=== PATIENT | female | born 1975 | race Caucasian/White ===

== ENCOUNTER 2019-01-16 20:34 | Emergency (ER) | payer SELFPAY ==
[~2019-01-16] VITALS: Ht 167.6 cm; Wt 77.0 kg
[2019-01-16] MEDS ORDERED: ONDANSETRON 4MG ODT PO STA (22:46)
[2019-01-16] MEDS ORDERED: LIDOCAINE HCL/PF 1% 10 MG/ML 5ML VIAL IJ ONE (23:00)
[2019-01-16] MEDS ORDERED: MORPHINE SULFATE 10 MG/ML CPJ IM ONE (23:00)
[2019-01-16] MEDS ORDERED: SODIUM CHLORIDE 0.9% 1,000 ML IV ONE (23:03)
[2019-01-17 00:35] LABS: BASOPHILS % 0.3 % (0.0-2.0); EOSINOPHILS % 0.1 % (0.0-5.0); HEMATOCRIT. 37.7 % (36.0-48.0); HEMOGLOBIN. 12.6 g/dL (12.0-16.0); LYMPHOCYTES % 10.1 % (20.0-50.0); MEAN CORPUSCULAR VOLUME 89.7 fL (81.0-99.0); MEAN PLATELET VOLUME 8.2 fl (7.4-10.4); NEUTROPHILS % 85.5 % (40.0-76.0); PLATELET 238 x1000/uL (130-400); RED CELL DISTRIBUTION WIDTH 13.8 % (11.6-14.6)
[2019-01-17 00:40] LABS: CHLORIDE 109 mEq/L (98-107)
[2019-01-17] MEDS ORDERED: TETANUS, DIPHTHERIA, PERTUSSIS VAC/PF 0.5ML (>7YR OLD) IM ONE (01:00)
[2019-01-17 02:57] LABS: CLARITY URINE CLEAR (CLEAR); COLOR URINE YELLOW (YELLOW); KETONES URINE TRACE (NEGATIVE); LEUKOCYTE ESTERASE URINE NEGATIVE (NEGATIVE); NITRITE URINE NEGATIVE (NEGATIVE); OCCULT BLOOD URINE NEGATIVE (NEGATIVE); PH URINE 5.5 (4.5-8.0); PROTEIN URINE TRACE (NEGATIVE); SPECIFIC GRAVITY URINE 1.029 (1.005-1.030); UROBILINOGEN URINE 0.2 E.U./dL (0.2-1.0)
[2019-01-17] MEDS ORDERED: ONDANSETRON HCL 4MG/2ML INJ IV ONE (03:30)
[2019-01-17] MEDS ORDERED: MORPHINE SULFATE 4 MG/ML CPJ (NOT FOR IM USE) IV ONE (03:30)
[2019-01-17 04:15] VITALS: BP 132/78
== END 2019-01-17 06:18 | disposition home or self-care (01) ==
LOC: ER 23:38
DX: S22.39XA Fracture of one rib, unspecified side, initial encounter for closed fracture (principal); S09.8XXA Other specified injuries of head, initial encounter; M54.9 Dorsalgia, unspecified; R56.9 Unspecified convulsions; W19.XXXA Unspecified fall, initial encounter; Y93.89 Activity, other specified; Y92.89 Other specified places as the place of occurrence of the external cause; Y99.8 Other external cause status
CPT/HCPCS: 36415; 70450; 72070; 72128; 80053; 81003; 85025; 90471; 90715; 96374; 96375; 99284; J2270; J2405; J3490; J7030; Q0162

== ENCOUNTER 2019-04-21 11:15 | Emergency (ER) | payer MEDICARE, MEDICAID ==
[~2019-04-21] VITALS: Ht 162.6 cm; Wt 77.0 kg
[2019-04-21] MEDS ORDERED: SODIUM CHLORIDE 0.9% 1,000 ML IV ONE (11:37)
[2019-04-21 12:45] LABS: BASOPHILS % 0.4 % (0.0-2.0); EOSINOPHILS % 0.6 % (0.0-5.0); HEMATOCRIT. 38.5 % (36.0-48.0); LYMPHOCYTES % 30.5 % (20.0-50.0); MEAN CORPUSCULAR HEMOGLOBIN 29.7 pg (28.0-32.0); MEAN CORPUSCULAR VOLUME 88.1 fL (81.0-99.0); MEAN PLATELET VOLUME 8.3 fl (7.4-10.4); MONOCYTES % 6.8 % (2.0-8.0); NEUTROPHILS % 61.7 % (40.0-76.0); PLATELET 242 x1000/uL (130-400); RED BLOOD CELL COUNT 4.37 mill/uL (4.2-5.4); RED CELL DISTRIBUTION WIDTH 13.6 % (11.6-14.6)
[2019-04-21 12:50] LABS: CHLORIDE 106 mEq/L (98-107)
[2019-04-21 12:54] LABS: ETHANOL BLOOD < 10 mg/dL
[2019-04-21 13:34] LABS: HCG SCREEN NEGATIVE
[2019-04-21 17:28] VITALS: BP 122/80
[2019-04-21 17:28] LABS: CLARITY URINE CLEAR (CLEAR); COLOR URINE YELLOW (YELLOW); KETONES URINE NEGATIVE (NEGATIVE); LEUKOCYTE ESTERASE URINE NEGATIVE (NEGATIVE); NITRITE URINE POSITIVE (NEGATIVE); OCCULT BLOOD URINE NEGATIVE (NEGATIVE); PH URINE 5.5 (4.5-8.0); PROTEIN URINE NEGATIVE (NEGATIVE); SPECIFIC GRAVITY URINE 1.025 (1.005-1.030); UROBILINOGEN URINE 0.2 E.U./dL (0.2-1.0)
[2019-04-21] MEDS ORDERED: CEFTRIAXONE 1 G PREMIX 50 ML IV NR (17:45)
[2019-04-21 17:48] LABS: *AMPHETAMINES SCREEN URINE NEGATIVE (NEGATIVE); METHADONE URINE SCREEN NEGATIVE (NEGATIVE)
[2019-04-21 17:49] LABS: *BARBITURATES SCREEN URINE NEGATIVE (NEGATIVE); *BENZODIAZEPINES SCREEN URINE NEGATIVE (NEGATIVE); *COCAINE SCREEN URINE NEGATIVE (NEGATIVE); CANNABINOID URINE SCREEN NEGATIVE (NEGATIVE); OPIATES URINE SCREEN NEGATIVE (NEGATIVE); PHENCYCLIDINE URINE SCREEN NEGATIVE (NEGATIVE)
== END 2019-04-21 18:19 | disposition home or self-care (01) ==
LOC: ER 11:15
DX: N39.0 Urinary tract infection, site not specified (principal); R56.9 Unspecified convulsions
CPT/HCPCS: 36415; 70450; 80053; 80305; 80320; 81003; 84703; 85025; 96360; 99284; J7030; G0480

== ENCOUNTER 2021-05-10 12:43 | Emergency (ER) | payer OTHER, MEDICAID ==
[~2021-05-10] VITALS: Ht 162.6 cm; Wt 100.0 kg
[2021-05-10 13:38] LABS: BASOPHILS % 0.6 % (0.0-2.0); HEMATOCRIT. 38.8 % (36.0-48.0); HEMOGLOBIN. 13.2 g/dL (12.0-16.0); MEAN CORPUSCULAR HEMOGLOBIN 30.3 pg (28.0-32.0); MEAN CORPUSCULAR VOLUME 88.8 fL (81.0-99.0); MEAN PLATELET VOLUME 8.3 fl (7.4-10.4); MONOCYTES % 5.8 % (2.0-8.0); NEUTROPHILS % 57.6 % (40.0-76.0); PLATELET 237 x1000/uL (130-400); RED BLOOD CELL COUNT 4.36 mill/uL (4.2-5.4); RED CELL DISTRIBUTION WIDTH 13.9 % (11.6-14.6)
[2021-05-10 13:45] LABS: CHLORIDE 109 mEq/L (98-107)
[2021-05-10 15:53] VITALS: BP 126/70
== END 2021-05-10 15:56 | disposition home or self-care (01) ==
LOC: ER 12:43
DX: R56.9 Unspecified convulsions (principal)
CPT/HCPCS: 36415; 80053; 85025; 93005; 99284

== ENCOUNTER 2021-09-02 14:34 | Emergency (ER) | payer MEDICARE, MEDICAID ==
[~2021-09-02] VITALS: Ht 162.6 cm; Wt 91.0 kg
[2021-09-02] MEDS ORDERED: CARB200T PO (14:44)
[2021-09-02 15:28] LABS: BASOPHILS % 0.4 % (0.0-2.0); EOSINOPHILS % 0.6 % (0.0-5.0); HEMOGLOBIN. 13.2 g/dL (12.0-16.0); LYMPHOCYTES % 20.1 % (20.0-50.0); MEAN CORPUSCULAR HEMOGLOBIN 30.8 pg (28.0-32.0); MEAN CORPUSCULAR VOLUME 88.5 fL (81.0-99.0); MEAN PLATELET VOLUME 8.2 fl (7.4-10.4); MONOCYTES % 5.4 % (2.0-8.0); NEUTROPHILS % 73.5 % (40.0-76.0); PLATELET 241 x1000/uL (130-400); RED BLOOD CELL COUNT 4.29 mill/uL (4.2-5.4); RED CELL DISTRIBUTION WIDTH 13.4 % (11.6-14.6)
[2021-09-02 15:32] LABS: CHLORIDE 108 mEq/L (98-107)
[2021-09-02 15:43] LABS: ETHANOL BLOOD < 10 mg/dL
[2021-09-02] MEDS ORDERED: MORPHINE SULFATE 4 MG/ML CPJ (NOT FOR IM USE) IV ONE (15:45)
[2021-09-02 19:19] LABS: CLARITY URINE CLEAR (CLEAR); COLOR URINE YELLOW (YELLOW); KETONES URINE TRACE (NEGATIVE); LEUKOCYTE ESTERASE URINE NEGATIVE (NEGATIVE); NITRITE URINE NEGATIVE (NEGATIVE); OCCULT BLOOD URINE 2+ (NEGATIVE); PROTEIN URINE NEGATIVE (NEGATIVE); SPECIFIC GRAVITY URINE 1.021 (1.005-1.030); UROBILINOGEN URINE 0.2 E.U./dL (0.2-1.0)
[2021-09-02 19:31] LABS: *AMPHETAMINES SCREEN URINE NEGATIVE (NEGATIVE); *BARBITURATES SCREEN URINE NEGATIVE (NEGATIVE); *BENZODIAZEPINES SCREEN URINE NEGATIVE (NEGATIVE); *COCAINE SCREEN URINE NEGATIVE (NEGATIVE); CANNABINOID URINE SCREEN NEGATIVE (NEGATIVE); METHADONE URINE SCREEN NEGATIVE (NEGATIVE); PHENCYCLIDINE URINE SCREEN NEGATIVE (NEGATIVE)
[2021-09-02 19:32] LABS: OPIATES URINE SCREEN PRESUMTIVE POSITIVE (NEGATIVE)
[2021-09-03 03:04] VITALS: BP 137/88
== END 2021-09-03 03:24 | disposition home or self-care (01) ==
LOC: ER 14:55
DX: G40.909 Epilepsy, unspecified, not intractable, without status epilepticus (principal); T42.0X5A Adverse effect of hydantoin derivatives, initial encounter; S00.83XA Contusion of other part of head, initial encounter; W01.198A Fall on same level from slipping, tripping and stumbling with subsequent striking against other object, initial encounter; Y93.89 Activity, other specified; Y92.89 Other specified places as the place of occurrence of the external cause
CPT/HCPCS: 36415; 70450; 71045; 80053; 80156; 80305; 80320; 81003; 82962; 83690; 84484; 85025; 93005; 96374; 99285; J2270; G0480

== ENCOUNTER → 2024-02-01 | Emergency (ER) | payer MEDICARE, MEDICAID ==
[~2024-02-01] VITALS: Ht 162.6 cm; Wt 70.0 kg
[~2024-02-01] MED LIST: CARB200T PO
[2024-02-01 11:49] VITALS: TEMP 98.3; O2SAT 95
[2024-02-01 13:45] VITALS: BP 119/63; PULSE 73; RESP 18; O2SAT 99
[2024-02-01 14:04] LABS: BASOPHILS % 0.3 % (0.0-2.0); EOSINOPHILS % 0.1 % (0.0-5.0); HEMATOCRIT. 42.9 % (36.0-48.0); HEMOGLOBIN. 14.3 g/dL (12.0-16.0); LYMPHOCYTES % 18.5 % (20.0-50.0); MEAN CORPUSCULAR HEMOGLOBIN 30.4 pg (28.0-32.0); MEAN CORPUSCULAR HGB CONC 33.4 g/dL (31.0-37.0); MEAN CORPUSCULAR VOLUME 91.1 fL (81.0-99.0); MEAN PLATELET VOLUME 8.2 fl (7.4-10.4); MONOCYTES % 3.9 % (2.0-8.0); NEUTROPHILS % 77.2 % (40.0-76.0); PLATELET 227 x1000/uL (130-400); RED BLOOD CELL COUNT 4.71 mill/uL (4.2-5.4); RED CELL DISTRIBUTION WIDTH 13.7 % (11.6-14.6); WHITE BLOOD COUNT 8.1 x1000/uL (4.5-11.0)
[2024-02-01 14:10] LABS: CARBON DIOXIDE 29 mEq/L (21-32); CHLORIDE 105 mEq/L (98-107); POTASSIUM 4.2 mEq/L (3.5-5.1); SODIUM 138 mEq/L (136-145)
[2024-02-01 14:11] LABS: CALCIUM 9.2 mg/dL (8.7-10.4)
[2024-02-01 14:15] LABS: CREATININE 0.6 mg/dL (0.6-1.0); GLUCOSE 140 mg/dL (70-105)
[2024-02-01 14:16] LABS: UREA NITROGEN BLOOD 12 mg/dL (9-23)
[2024-02-01 14:18] LABS: PHOSPHORUS 3.9 mg/dL (2.5-4.9)
[2024-02-01 15:15] LABS: CLARITY URINE CLEAR (CLEAR); COLOR URINE YELLOW (YELLOW); GLUCOSE URINE 3+ (NEGATIVE); KETONES URINE NEGATIVE (NEGATIVE); LEUKOCYTE ESTERASE URINE NEGATIVE (NEGATIVE); NITRITE URINE NEGATIVE (NEGATIVE); OCCULT BLOOD URINE NEGATIVE (NEGATIVE); PH URINE 6.5 (4.5-8.0); PROTEIN URINE NEGATIVE (NEGATIVE); UROBILINOGEN URINE 0.2 E.U./dL (0.2-1.0)
[2024-02-01 15:35] LABS: *AMPHETAMINES SCREEN URINE NEGATIVE (NEGATIVE); *BARBITURATES SCREEN URINE NEGATIVE (NEGATIVE); *BENZODIAZEPINES SCREEN URINE NEGATIVE (NEGATIVE); *COCAINE SCREEN URINE NEGATIVE (NEGATIVE)
[2024-02-01 15:36] LABS: CANNABINOID URINE SCREEN NEGATIVE (NEGATIVE); ECSTASY MDMA SCREEN URINE NEGATIVE (NEGATIVE); METHADONE URINE SCREEN NEGATIVE (NEGATIVE); OPIATES URINE SCREEN NEGATIVE (NEGATIVE); PHENCYCLIDINE URINE SCREEN NEGATIVE (NEGATIVE)
[2024-02-01 15:38] LABS: BACTERIA URINE FEW; RBC URINE 0-2 /hpf (0-2); SQUAMOUS EPITHELIAL CELL URINE FEW /lpf (RARE/1+); WBC URINE 0-2 /hpf (0-2); YEAST URINE NONE SEEN
== END | disposition home or self-care (01) ==
LOC: ER 11:40
DX: G40.909 Epilepsy, unspecified, not intractable, without status epilepticus (principal); Z90.49 Acquired absence of other specified parts of digestive tract
CPT/HCPCS: 36415; 80048; 80305; 81003; 83735; 84100; 85025; 93005; 99284

== ENCOUNTER 2024-04-17 12:31 | Emergency (ER) | payer MEDICAID, MEDICARE ==
[~2024-04-17] VITALS: Ht 162.6 cm; Wt 87.0 kg
[2024-04-17 12:32] VITALS: PULSE 74; O2SAT 100
[2024-04-17 12:35] VITALS: BP 138/84; RESP 18; TEMP 98.6; O2SAT 99
[2024-04-17 13:14] LABS: BASOPHILS % 0.2 % (0.0-2.0); EOSINOPHILS % 0.4 % (0.0-5.0); HEMOGLOBIN. 13.9 g/dL (12.0-16.0); LYMPHOCYTES % 22.8 % (20.0-50.0); MEAN CORPUSCULAR HEMOGLOBIN 30.2 pg (28.0-32.0); MEAN CORPUSCULAR HGB CONC 33.2 g/dL (31.0-37.0); MEAN PLATELET VOLUME 8.4 fl (7.4-10.4); MONOCYTES % 4.7 % (2.0-8.0); NEUTROPHILS % 71.9 % (40.0-76.0); PLATELET 215 x1000/uL (130-400); RED BLOOD CELL COUNT 4.61 mill/uL (4.2-5.4); RED CELL DISTRIBUTION WIDTH 13.3 % (11.6-14.6); WHITE BLOOD COUNT 6.7 x1000/uL (4.5-11.0)
[2024-04-17 13:25] LABS: CHLORIDE 105 mEq/L (98-107); POTASSIUM 4.3 mEq/L (3.5-5.1); SODIUM 141 mEq/L (136-145)
[2024-04-17 13:26] LABS: CALCIUM 9.3 mg/dL (8.7-10.4); CARBON DIOXIDE 29 mEq/L (21-32)
[2024-04-17 13:31] LABS: CREATININE 0.8 mg/dL (0.6-1.0); GLUCOSE 196 mg/dL (70-105); UREA NITROGEN BLOOD 8 mg/dL (9-23)
[2024-04-17 13:32] LABS: CARBAMAZEPINE 7.7 ug/mL (4-12)
[2024-04-17 13:34] LABS: ETHANOL BLOOD < 10 mg/dL (<10)
== END 2024-04-17 16:50 | disposition home or self-care (01) ==
LOC: ER 12:49
DX: R56.9 Unspecified convulsions (principal); S09.90XA Unspecified injury of head, initial encounter; E11.9 Type 2 diabetes mellitus without complications; Z90.49 Acquired absence of other specified parts of digestive tract; W18.30XA Fall on same level, unspecified, initial encounter; Y93.89 Activity, other specified; Y92.89 Other specified places as the place of occurrence of the external cause; Y99.8 Other external cause status
CPT/HCPCS: 36415; 80048; 80156; 80320; 85025; 93005; 99284; G0480

== ENCOUNTER 2024-05-29 12:51 | Emergency (ER) | payer OTHER, MEDICAID ==
[~2024-05-29] VITALS: Ht 167.6 cm; Wt 80.0 kg
[2024-05-29 12:54] VITALS: O2SAT 96
[2024-05-29] MEDS: LORAZEPAM 2MG/ML INJ IV ONE (13:56)
[2024-05-29 14:08] LABS: BASOPHILS % 0.5 % (0.0-2.0); EOSINOPHILS % 0.9 % (0.0-5.0); HEMATOCRIT. 41.1 % (36.0-48.0); HEMOGLOBIN. 13.8 g/dL (12.0-16.0); LYMPHOCYTES % 27.9 % (20.0-50.0); MEAN CORPUSCULAR HEMOGLOBIN 30.8 pg (28.0-32.0); MEAN CORPUSCULAR HGB CONC 33.5 g/dL (31.0-37.0); MEAN CORPUSCULAR VOLUME 91.9 fL (81.0-99.0); MEAN PLATELET VOLUME 8.6 fl (7.4-10.4); MONOCYTES % 5.7 % (2.0-8.0); PLATELET 227 x1000/uL (130-400); RED BLOOD CELL COUNT 4.47 mill/uL (4.2-5.4); RED CELL DISTRIBUTION WIDTH 13.6 % (11.6-14.6); WHITE BLOOD COUNT 6.6 x1000/uL (4.5-11.0)
[2024-05-29 14:17] LABS: CHLORIDE 105 mEq/L (98-107); POTASSIUM 4.1 mEq/L (3.5-5.1); SODIUM 138 mEq/L (136-145)
[2024-05-29 14:18] LABS: CARBON DIOXIDE 25 mEq/L (21-32)
[2024-05-29 14:19] LABS: CALCIUM 8.9 mg/dL (8.7-10.4)
[2024-05-29 14:23] LABS: CREATININE 0.6 mg/dL (0.6-1.0); GLUCOSE 159 mg/dL (70-105); UREA NITROGEN BLOOD 13 mg/dL (9-23)
[2024-05-29 14:30] LABS: ETHANOL BLOOD < 10 mg/dL (<10)
[2024-05-29 15:29] LABS: CLARITY URINE CLEAR (CLEAR); COLOR URINE YELLOW (YELLOW); GLUCOSE URINE 3+ (NEGATIVE); KETONES URINE NEGATIVE (NEGATIVE); LEUKOCYTE ESTERASE URINE NEGATIVE (NEGATIVE); NITRITE URINE NEGATIVE (NEGATIVE); OCCULT BLOOD URINE NEGATIVE (NEGATIVE); PROTEIN URINE NEGATIVE (NEGATIVE); UROBILINOGEN URINE 0.2 E.U./dL (0.2-1.0)
[2024-05-29 15:30] LABS: *AMPHETAMINES SCREEN URINE NEGATIVE (NEGATIVE); *BARBITURATES SCREEN URINE NEGATIVE (NEGATIVE); *BENZODIAZEPINES SCREEN URINE NEGATIVE (NEGATIVE); *COCAINE SCREEN URINE NEGATIVE (NEGATIVE)
[2024-05-29 15:31] LABS: CANNABINOID URINE SCREEN NEGATIVE (NEGATIVE); ECSTASY MDMA SCREEN URINE NEGATIVE (NEGATIVE); METHADONE URINE SCREEN NEGATIVE (NEGATIVE); OPIATES URINE SCREEN NEGATIVE (NEGATIVE); PHENCYCLIDINE URINE SCREEN NEGATIVE (NEGATIVE)
[2024-05-29 16:17] LABS: BACTERIA URINE NONE SEEN; RBC URINE NONE SEEN /hpf (0-2); SQUAMOUS EPITHELIAL CELL URINE FEW /lpf (RARE/1+); WBC URINE 0-2 /hpf (0-2)
[2024-05-29] MEDS ORDERED: CARB100T12 MT (17:30)
[2024-05-29] MEDS ORDERED: CARB200C7 MT (17:30)
[2024-05-29 18:00] VITALS: BP 134/69; PULSE 92; RESP 18; TEMP 36.66960; O2SAT 96
== END 2024-05-29 18:10 | disposition home or self-care (01) ==
LOC: ER 12:51
DX: G40.909 Epilepsy, unspecified, not intractable, without status epilepticus (principal); E11.9 Type 2 diabetes mellitus without complications; I10 Essential (primary) hypertension; Z90.49 Acquired absence of other specified parts of digestive tract
CPT/HCPCS: 80305; 80048; 81003; 80320; 80156; 85025; 36415; 96374; 99283; J2060; G0480

== ENCOUNTER 2024-06-05 08:34 | Emergency (ER) | payer OTHER, MEDICAID ==
[~2024-06-05] VITALS: Ht 165.1 cm; Wt 85.0 kg
[~2024-06-05 08:34] MED LIST changes: +CARB100T12 MT; +CARB200C7 MT
[2024-06-05 08:55] VITALS: BP 147/79; PULSE 71; RESP 18; TEMP 36.9; O2SAT 98
[2024-06-05] MEDS ORDERED: ACETAMINOPHEN 325MG TABLET PO ONE (11:00)
[2024-06-05 11:34] LABS: BASOPHILS % 0.3 % (0.0-2.0); EOSINOPHILS % 0.4 % (0.0-5.0); HEMATOCRIT. 42.6 % (36.0-48.0); HEMOGLOBIN. 14.4 g/dL (12.0-16.0); LYMPHOCYTES % 24.4 % (20.0-50.0); MEAN CORPUSCULAR HEMOGLOBIN 31.1 pg (28.0-32.0); MEAN CORPUSCULAR HGB CONC 33.8 g/dL (31.0-37.0); MEAN CORPUSCULAR VOLUME 91.9 fL (81.0-99.0); MEAN PLATELET VOLUME 8.5 fl (7.4-10.4); MONOCYTES % 5.1 % (2.0-8.0); NEUTROPHILS % 69.8 % (40.0-76.0); PLATELET 254 x1000/uL (130-400); RED BLOOD CELL COUNT 4.63 mill/uL (4.2-5.4); RED CELL DISTRIBUTION WIDTH 14.2 % (11.6-14.6); WHITE BLOOD COUNT 7.5 x1000/uL (4.5-11.0)
[2024-06-05 11:41] LABS: CHLORIDE 106 mEq/L (98-107); SODIUM 139 mEq/L (136-145)
[2024-06-05 11:42] LABS: CARBON DIOXIDE 24 mEq/L (21-32)
[2024-06-05 11:43] LABS: CALCIUM 9.1 mg/dL (8.7-10.4)
[2024-06-05 11:47] LABS: CREATININE 0.5 mg/dL (0.6-1.0); GLUCOSE 139 mg/dL (70-105)
[2024-06-05 11:48] LABS: UREA NITROGEN BLOOD 10 mg/dL (9-23)
[2024-06-05 11:49] LABS: ALANINE AMINOTRANSFERASE 11 IU/L (10-49); ALBUMIN 4.1 g/dL (3.2-4.8); ASPARTATE AMINOTRANSFERASE 13 IU/L (<34)
[2024-06-05 11:50] LABS: BILIRUBIN TOTAL 0.4 mg/dL (0.1-1.0); PHOSPHORUS 2.6 mg/dL (2.5-4.9); PROTEIN TOTAL 7.2 g/dL (6.0-8.3)
[2024-06-05 12:18] LABS: HCG SCREEN NEGATIVE
[2024-06-05] MEDS ORDERED: MAGNESIUM GLUCONATE 500MG TABLET PO SCH (14:30)
== END 2024-06-05 14:56 | disposition home or self-care (01) ==
LOC: ER 08:34
DX: R56.9 Unspecified convulsions (principal); E11.9 Type 2 diabetes mellitus without complications; I10 Essential (primary) hypertension; Z90.49 Acquired absence of other specified parts of digestive tract
CPT/HCPCS: 36415; 80053; 83735; 84100; 84703; 85025; 93005; 99291

== ENCOUNTER 2024-06-30 11:43 | Emergency (ER) | payer MEDICAID, OTHER ==
[~2024-06-30] VITALS: Ht 165.1 cm; Wt 95.0 kg
[2024-06-30 11:53] VITALS: TEMP 36.9; O2SAT 98
[2024-06-30 16:56] VITALS: BP 155/81; PULSE 76; RESP 19; O2SAT 98
== END 2024-06-30 16:57 | disposition home or self-care (01) ==
LOC: ER 11:43
DX: I10 Essential (primary) hypertension (principal); Z00.00 Encounter for general adult medical examination without abnormal findings; R56.9 Unspecified convulsions; E11.9 Type 2 diabetes mellitus without complications; Z90.49 Acquired absence of other specified parts of digestive tract
CPT/HCPCS: 99281

== ENCOUNTER 2024-08-14 12:48 | Emergency (ER) | payer OTHER ==
[~2024-08-14] VITALS: Ht 165.1 cm; Wt 87.6 kg
[2024-08-14 12:53] VITALS: BP 166/94; TEMP 36.7; O2SAT 98
[2024-08-14 14:17] VITALS: PULSE 88; RESP 18; O2SAT 99
[2024-08-14 15:16] LABS: BASOPHILS % 0.4 % (0.0-2.0); EOSINOPHILS % 0.1 % (0.0-5.0); HEMATOCRIT. 42.6 % (36.0-48.0); LYMPHOCYTES % 17.1 % (20.0-50.0); MEAN CORPUSCULAR HEMOGLOBIN 30.1 pg (28.0-32.0); MEAN CORPUSCULAR HGB CONC 32.9 g/dL (31.0-37.0); MEAN CORPUSCULAR VOLUME 91.5 fL (81.0-99.0); MEAN PLATELET VOLUME 8.6 fl (7.4-10.4); MONOCYTES % 5.3 % (2.0-8.0); NEUTROPHILS % 77.1 % (40.0-76.0); PLATELET 232 x1000/uL (130-400); RED BLOOD CELL COUNT 4.65 mill/uL (4.2-5.4); RED CELL DISTRIBUTION WIDTH 12.9 % (11.6-14.6); WHITE BLOOD COUNT 8.7 x1000/uL (4.5-11.0)
[2024-08-14 15:24] LABS: CHLORIDE 104 mEq/L (98-107); POTASSIUM 3.9 mEq/L (3.5-5.1); SODIUM 137 mEq/L (136-145)
[2024-08-14 15:25] LABS: CALCIUM 9.3 mg/dL (8.7-10.4); CARBON DIOXIDE 27 mEq/L (21-32)
[2024-08-14 15:30] LABS: CREATININE 0.5 mg/dL (0.6-1.0); GLUCOSE 241 mg/dL (70-105); HCG SCREEN NEGATIVE; UREA NITROGEN BLOOD 12 mg/dL (9-23)
[2024-08-14 15:32] LABS: ALANINE AMINOTRANSFERASE 16 IU/L (10-49); ALBUMIN 3.8 g/dL (3.2-4.8); ASPARTATE AMINOTRANSFERASE 19 IU/L (<34); BILIRUBIN TOTAL 0.3 mg/dL (0.1-1.0); PROTEIN TOTAL 7.1 g/dL (6.0-8.3)
[2024-08-14] MEDS: ACETAMINOPHEN 325MG TABLET PO ONE (15:48)
[2024-08-14] MEDS: LEVETIRACETAM 500MG PREMIX 100 ML IV ONE ×2 (15:48)
== END 2024-08-14 16:35 | disposition home or self-care (01) ==
LOC: ER 12:48
DX: R56.9 Unspecified convulsions (principal); S00.83XA Contusion of other part of head, initial encounter; E11.9 Type 2 diabetes mellitus without complications; Z90.49 Acquired absence of other specified parts of digestive tract; Z86.59 Personal history of other mental and behavioral disorders; X58.XXXA Exposure to other specified factors, initial encounter; Y93.89 Activity, other specified; Y92.89 Other specified places as the place of occurrence of the external cause; Y99.8 Other external cause status
CPT/HCPCS: 99285; 96374; 70450; 80053; 84703; 85025; 36415; J1953

== ENCOUNTER 2024-09-26 08:27 | Emergency (ER) | payer OTHER ==
[~2024-09-26] VITALS: Ht 165.1 cm; Wt 73.0 kg
[2024-09-26 08:30] VITALS: O2SAT 98
[2024-09-26 09:33] LABS: BASOPHILS % 0.5 % (0.0-2.0); HEMATOCRIT. 40.8 % (36.0-48.0); HEMOGLOBIN. 13.6 g/dL (12.0-16.0); LYMPHOCYTES % 31.8 % (20.0-50.0); MEAN CORPUSCULAR HEMOGLOBIN 30.1 pg (28.0-32.0); MEAN CORPUSCULAR HGB CONC 33.4 g/dL (31.0-37.0); MEAN CORPUSCULAR VOLUME 90.1 fL (81.0-99.0); MEAN PLATELET VOLUME 8.4 fl (7.4-10.4); MONOCYTES % 6.4 % (2.0-8.0); NEUTROPHILS % 60.3 % (40.0-76.0); PLATELET 228 x1000/uL (130-400); RED BLOOD CELL COUNT 4.52 mill/uL (4.2-5.4); RED CELL DISTRIBUTION WIDTH 13.5 % (11.6-14.6)
[2024-09-26 09:40] LABS: CHLORIDE 106 mEq/L (98-107); SODIUM 137 mEq/L (136-145)
[2024-09-26 09:41] LABS: CARBON DIOXIDE 24 mEq/L (21-32)
[2024-09-26 09:42] LABS: CALCIUM 8.5 mg/dL (8.7-10.4)
[2024-09-26 09:46] LABS: CREATININE 0.5 mg/dL (0.6-1.0); GLUCOSE 228 mg/dL (70-105); UREA NITROGEN BLOOD 12 mg/dL (9-23)
[2024-09-26 09:47] LABS: CARBAMAZEPINE 8.5 ug/mL (4-12); ETHANOL BLOOD < 10 mg/dL (<10)
[2024-09-26 10:40] LABS: CLARITY URINE CLEAR (CLEAR); COLOR URINE YELLOW (YELLOW)
[2024-09-26 10:41] LABS: GLUCOSE URINE 3+ (NEGATIVE); KETONES URINE TRACE (NEGATIVE); LEUKOCYTE ESTERASE URINE NEGATIVE (NEGATIVE); NITRITE URINE NEGATIVE (NEGATIVE); OCCULT BLOOD URINE NEGATIVE (NEGATIVE); PH URINE 5.5 (4.5-8.0); PROTEIN URINE NEGATIVE (NEGATIVE); SPECIFIC GRAVITY URINE >=1.030 (1.005-1.030); UROBILINOGEN URINE 0.2 E.U./dL (0.2-1.0)
[2024-09-26 10:47] LABS: BACTERIA URINE 2+; RBC URINE 0-2 /hpf (0-2); SQUAMOUS EPITHELIAL CELL URINE 1+ /lpf (RARE/1+); WBC URINE 0-2 /hpf (0-2); YEAST URINE NONE SEEN
[2024-09-26 11:18] LABS: *AMPHETAMINES SCREEN URINE NEGATIVE (NEGATIVE); *BARBITURATES SCREEN URINE NEGATIVE (NEGATIVE); *BENZODIAZEPINES SCREEN URINE NEGATIVE (NEGATIVE); *COCAINE SCREEN URINE NEGATIVE (NEGATIVE); CANNABINOID URINE SCREEN NEGATIVE (NEGATIVE); ECSTASY MDMA SCREEN URINE NEGATIVE (NEGATIVE); METHADONE URINE SCREEN NEGATIVE (NEGATIVE); OPIATES URINE SCREEN NEGATIVE (NEGATIVE); PHENCYCLIDINE URINE SCREEN NEGATIVE (NEGATIVE)
[2024-09-26 12:04] VITALS: BP 128/61; PULSE 68; RESP 16; TEMP 37.1; O2SAT 98
== END 2024-09-26 12:04 | disposition home or self-care (01) ==
LOC: ER 08:27
DX: G40.909 Epilepsy, unspecified, not intractable, without status epilepticus (principal); E11.9 Type 2 diabetes mellitus without complications
CPT/HCPCS: 36415; 80048; 80156; 80305; 80320; 81003; 82962; 85025; 99283; G0480

== ENCOUNTER 2025-03-19 12:31 | Emergency (ER) | payer OTHER ==
[~2025-03-19] VITALS: Ht 167.6 cm; Wt 91.0 kg
[2025-03-19 12:39] VITALS: O2SAT 97
[2025-03-19 13:26] LABS: BASOPHILS % 0.3 % (0.0-2.0); EOSINOPHILS % 0.3 % (0.0-5.0); HEMATOCRIT. 40.5 % (36.0-48.0); HEMOGLOBIN. 13.7 g/dL (12.0-16.0); LYMPHOCYTES % 22.9 % (20.0-50.0); MEAN PLATELET VOLUME 8.8 fl (7.4-10.4); MONOCYTES % 6.5 % (2.0-8.0); NEUTROPHILS % 70.0 % (40.0-76.0); PLATELET 218 x1000/uL (130-400); RED BLOOD CELL COUNT 4.44 mill/uL (4.2-5.4); RED CELL DISTRIBUTION WIDTH 13.4 % (11.6-14.6)
[2025-03-19 13:49] LABS: CREATININE 0.5 mg/dL (0.6-1.0)
[2025-03-19 13:50] LABS: UREA NITROGEN BLOOD 9 mg/dL (9-23)
[2025-03-19] MEDS: CARBAMAZEPINE 200MG TABLET PO ONE (14:06)
[2025-03-19 14:22] LABS: CARBAMAZEPINE 13.4 ug/mL (4-12)
[2025-03-19] MEDS: ACETAMINOPHEN 325MG TABLET PO ONE (15:09)
[2025-03-19 15:16] LABS: ETHANOL BLOOD < 10 mg/dL (<10)
[2025-03-19 15:18] LABS: ASPARTATE AMINOTRANSFERASE 22 IU/L (<34); BILIRUBIN DIRECT < 0.1 mg/dL (<=3.0); BILIRUBIN TOTAL 0.3 mg/dL (0.1-1.0); PROTEIN TOTAL 6.6 g/dL (6.0-8.3)
[2025-03-19 16:10] VITALS: BP 130/71; PULSE 86; RESP 14; TEMP 36.7; O2SAT 100
== END 2025-03-19 16:15 | disposition left against medical advice (07) ==
LOC: ER 12:31 → CANBEDREQ 15:46 → ER 16:15
DX: S01.01XA Laceration without foreign body of scalp, initial encounter (principal); E11.9 Type 2 diabetes mellitus without complications; I10 Essential (primary) hypertension; F03.90 Unspecified dementia, unspecified severity, without behavioral disturbance, psychotic disturbance, mood disturbance, and anxiety; Z90.49 Acquired absence of other specified parts of digestive tract; Z98.51 Tubal ligation status; X58.XXXA Exposure to other specified factors, initial encounter; Y93.89 Activity, other specified; Y92.89 Other specified places as the place of occurrence of the external cause; Y99.8 Other external cause status
CPT/HCPCS: 36415; 80048; 80076; 80156; 80320; 82962; 83735; 85025; 99284; G0480